=== PATIENT | male | born 1965 | race Caucasian/White ===

== ENCOUNTER → 2017-12-07 | Outpatient (CLI) | payer OTHER ==
--- NOTE | 2017-12-07 22:40 | MR ---
EXAMINATION TYPE: MR knee RT wo con DATE OF EXAM: 12/07/2017 COMPARISON: Outside right knee x-ray November 21, 2017 HISTORY: Rt knee pain x 2 weeks after exercising per patient. Pain per order. TECHNIQUE: Multiplanar, multisequence images of the knee is performed without IV contrast. FINDINGS: MEDIAL MENISCUS: Anterior and posterior horns are intact without tear. LATERAL MENISCUS: Anterior and posterior horns are intact without tear. CRUCIATE LIGAMENTS: The anterior and posterior cruciate ligaments are intact and unremarkable. COLLATERAL LIGAMENTS: The medial collateral ligament and lateral collateral ligament complex are inta ct. Some mild increased fluid signal surrounds lateral collateral ligament complex. EXTENSOR MECHANISM: Visualized quadriceps and patellar tendons are intact. EFFUSION: No significant suprapatellar joint effusion. POPLITEAL CYST: No popliteal/tavares cyst. TRICOMPARTMENT SPACES: There is mild to moderate tricompartment joint space loss with mild to minimal spurring. CARTILAGE: Some thinning of articular cartilage inferior posterior patellar pole is present. No full- thickness loss is seen. Articular cartilage is maintained lateral and medial tibiofemoral compartment s. BONE MARROW SIGNAL: No focal abnormal marrow signal is appreciated. OTHER: No additional significant abnormality is appreciated. IMPRESSION: 1. No meniscal or ligamentous tear is seen. 2. Mild to moderate lateral collateral ligament complex sprain injury. 3. Background mild tricompartment degenerative changes.
== END | disposition home or self-care (01) ==
LOC: RADMRIMAIN 17:45
PROVIDERS: ATTEND Orthopaedic Surgery
DX: S83.421A Sprain of lateral collateral ligament of right knee, initial encounter (principal)

== ENCOUNTER 2017-12-16 00:41 | Emergency (ER) | payer OTHER ==
[2017-12-16 00:50] VITALS: BP 147/79; PULSE 76; RESP 16; TEMP 98.5
[2017-12-16] MEDS ORDERED: HYDROcodone/APAP 5-325MG 1 EACH TAB PO STA (00:57)
--- NOTE | 2017-12-16 01:00 | ED ---
Upper Extremity HPI - General Chief Complaint: Extremity Injury, Upper Stated Complaint: L Wrist Injury Time Seen by Provider: 12/16/17 00:55 Source: patient Mode of arrival: ambulatory Limitations: no limitations - History of Present Illness Initial Comments: 52-year-old male patient presents to the emergency department today for complaints of left wrist pain. Patient states around 11 PM he was playing soccer, states that the ball struck him in the wrist. States he is having significant pain to the medial aspect of the wrist. States he is able to move it, but the pain increases significantly with any rotation. He denies any numbness or tingling to the hand. He denies any other injuries. Patient denies any headache, neck pain, back pain, chest pain, shortness of breath, dizziness, weakness, abdominal pain, nausea, vomiting, or difficulties with bowel movements or urination. - Related Data Allergies Allergy/AdvReac Type Severity Reaction Status Date / Time infliximab [From Remicade] Allergy Chest Pain Verified 12/16/17 00:50 Review of Systems ROS Statement: Those systems with pertinent positive or pertinent negative responses have been documented in the HPI. ROS Other: All systems not noted in ROS Statement are negative. Past Medical History Past Medical History: No Reported History Additional Past Medical History / Comment(s): crohns disease History of Any Multi-Drug Resistant Organisms: None Reported Past Surgical History: Appendectomy, Orthopedic Surgery Additional Past Surgical History / Comment(s): bowel resection, ACL repair. Past Psychological History: No Psychological Hx Reported Smoking Status: Never smoker Past Alcohol Use History: None Reported Past Drug Use History: None Reported General Exam Limitations: no limitations General appearance: alert, in no apparent distress, other (Physical well- developed, well-nourished adult male patient in no acute distress. Vital signs upon presentation are temperature 98.5F, pulse 76, respirations 16, blood pressure 147/79, pulse ox 98% on room air) Eye exam: Present: normal appearance, PERRL, EOMI. Absent: scleral icterus, conjunctival injection, periorbital swelling ENT exam: Present: normal exam, normal oropharynx, mucous membranes moist Respiratory exam: Present: normal lung sounds bilaterally. Absent: respiratory distress, wheezes, rales, rhonchi, stridor Cardiovascular Exam: Present: regular rate, normal rhythm, normal heart sounds. Absent: systolic murmur, diastolic murmur, rubs, gallop, clicks Extremities exam: Present: tenderness (Tenderness over the radial head on the left wrist.), normal capillary refill, other (There is swelling noted over the dorsal aspect of the left wrist. No anatomical snuffbox tenderness. Skin is otherwise pink, warm, and dry. Cap refills less than 3 seconds. Radial pulses 2+ and equal bilaterally.). Absent: full ROM (Decreased range of motion due to increased pain with movement), pedal edema, joint swelling, calf tenderness Neurological exam: Present: alert, oriented X3, CN II-XII intact Psychiatric exam: Present: normal affect, normal mood Skin exam: Present: warm, dry, intact, normal color. Absent: rash Course Vital Signs 12/16/17 00:44 Temperature 98.5 F Pulse Rate 76 Respiratory 16 Rate Blood Pressure 147/79 O2 Sat by Pulse 98 Oximetry Procedures - Orthopedic Splinting/Casting Injury #1 Side: left Upper Extremity Injury Location: short arm, wrist Upper Extremity Immobilizer: volar splint Additional Comments: Neurovascular status intact after splint application. Skin is pink, warm, and dry. Cap refills less than 3 seconds. Patient denies numbness or tingling. Medical Decision Making - Medical Decision Making 52-year-old male patient percents to the emergency department today for complaints of left wrist pain after an injury while playing soccer. Physical examination did reveal swelling surrounding the left wrist. Patient had radial head tenderness. He denied any anatomical snuffbox tenderness. Neurovascular status was intact. Distal pulses intact. X-ray was obtained and did show a fracture of the radial styloid process. Patient was placed in a short arm volar OCL splint. Neurovascular status intact after splint application. Discussed pain management, ice, and elevation with the patient. He is instructed to follow-up with orthopedics as soon as possible. He requests Dr. Franklin. He is instructed to return here immediately for any new, worsening, or concerning symptoms or to verbalizes understanding and agrees with this plan. - Radiology Data Radiology results: report reviewed, image reviewed 3 views of the left wrist show transverse fractures of the radial styloid process. There is no dislocation. There is no displacement. The fragment measures 2 x 1.5 cm. Carpal bones are intact. Metacarpals are intact. Impression by Dr. Ruiz shows acute nondisplaced fracture of the radial styloid process. Disposition Clinical Impression: Left radial fracture Disposition: HOME SELF-CARE Condition: Good Instructions: Arm Fracture in Adults (ED), Splint Care (ED) Additional Instructions: Rest, ice, elevate the left arm. Apply ice 20 minutes at a time at least 4 times daily. Leave splint in place until follow-up with orthopedics. Follow- up with orthopedics as soon as possible. Return here immediately for any new, worsening, or concerning symptoms. Referrals: Joy Magana MD [Primary Care Provider] - 1-2 days Blair Franklin MD [STAFF PHYSICIAN] - 1-2 days Time of Disposition: 01:30
--- NOTE | 2017-12-16 01:15 | XR ---
EXAMINATION TYPE: XR wrist complete LT DATE OF EXAM: 12/16/2017 COMPARISON: NONE HISTORY: Pain and injury TECHNIQUE: 3 views FINDINGS: There is a transverse fracture through the radial styloid process. There is no dislocation. There is no displacement. The fragment measures 2 x 1.5 cm. Carpal bones are intact. Metacarpals are intact. IMPRESSION: Acute nondisplaced large fracture of the radial styloid process.
== END 2017-12-16 01:33 | disposition home or self-care (01) ==
LOC: EC 00:41
DX: S52.512A Displaced fracture of left radial styloid process, initial encounter for closed fracture (principal); Z88.8 Allergy status to other drugs, medicaments and biological substances; W21.02XA Struck by soccer ball, initial encounter; Y93.66 Activity, soccer
CPT/HCPCS: 29125; 99283

== ENCOUNTER 2017-12-24 23:33 | Emergency (ER) | payer OTHER ==
[2017-12-24 23:39] VITALS: PULSE 79; RESP 18
[2017-12-24] MEDS ORDERED: HYDROcodone/APAP 5-325MG 1 EACH TAB PO STA (23:58)
[2017-12-24] MEDS ORDERED: KETOROLAC 60 MG/2 ML VIAL IM STA (23:58)
--- NOTE | 2017-12-25 00:32 | XR ---
EXAMINATION TYPE: XR chest 2V DATE OF EXAM: 12/25/2017 COMPARISON: NONE HISTORY: Difficulty breathing TECHNIQUE: Frontal and lateral views of the chest are obtained. FINDINGS: There is no heart failure nor confluent pneumonic infiltrate. Costophrenic angles are therese r. Bony thorax is intact. There is poor inspiration. IMPRESSION: No active cardiopulmonary disease.
--- NOTE | 2017-12-25 00:41 | ED ---
General Adult HPI - General Chief complaint: Abdominal Pain Stated complaint: LUQ Pain Time Seen by Provider: 12/24/17 23:35 Source: patient, RN notes reviewed Mode of arrival: ambulatory Limitations: no limitations - History of Present Illness Initial comments: This is a 52-year-old male who presents emergency department stating that he has had a cough over the last week which is improving. Patient states today however he coughed very hard and now he has pain in his lower right rib cage. Patient states hurts take a deep breath or moves. Patient states coughing also increases the pain. Patient denies being short of breath. Patient denies any other chest pain. Patient denies any fever chills. Patient denies any abdominal pain. - Related Data Previous Rx's Medication Instructions Recorded Hydrocodone/Acetaminophen [[place] 1 each PO Q6HR PRN #10 tab 12/25/17 5-325] Ibuprofen [Motrin] 600 mg PO Q6HR PRN #20 tab 12/25/17 Allergies Allergy/AdvReac Type Severity Reaction Status Date / Time infliximab [From Remicade] Allergy Chest Pain Verified 12/24/17 23:39 Review of Systems ROS Statement: Those systems with pertinent positive or pertinent negative responses have been documented in the HPI. ROS Other: All systems not noted in ROS Statement are negative. Past Medical History Past Medical History: No Reported History Additional Past Medical History / Comment(s): crohns disease History of Any Multi-Drug Resistant Organisms: None Reported Past Surgical History: Appendectomy, Orthopedic Surgery Additional Past Surgical History / Comment(s): bowel resection, ACL repair. Past Psychological History: No Psychological Hx Reported Smoking Status: Never smoker Past Alcohol Use History: None Reported Past Drug Use History: None Reported General Exam - General Exam Comments Initial Comments: GENERAL: Patient is well-developed and well-nourished. Patient is nontoxic and well- hydrated and is in mild distress. ENT: Neck is soft and supple. No significant lymphadenopathy is noted. Oropharynx is clear. Moist mucous membranes. Neck has full range of motion without eliciting any pain. EYES: The sclera were anicteric and conjunctiva were pink and moist. Extraocular movements were intact and pupils were equal round and reactive to light. Eyelids were unremarkable. PULMONARY: Unlabored respirations. Good breath sounds bilaterally. No audible rales rhonchi or wheezing was noted. CARDIOVASCULAR: There is a regular rate and rhythm without any murmurs gallops or rubs. Patient 's rib cage on the left lateral aspect is tender at about the 11th 12th rib. ABDOMEN: Soft and nontender SKIN: Skin is clear with no lesions or rashes and otherwise unremarkable. NEUROLOGIC: Patient is alert and oriented x3. Cranial nerves II through XII are grossly intact. Motor and sensory are also intact. Normal speech, volume and content. Symmetrical smile. MUSCULOSKELETAL: Normal extremities with adequate strength and full range of motion. LYMPHATICS: No significant lymphadenopathy is noted PSYCHIATRIC: Normal psychiatric evaluation. Limitations: no limitations Course Vital Signs 12/24/17 23:35 Temperature 97.7 F Pulse Rate 79 Respiratory 18 Rate Blood Pressure 131/85 O2 Sat by Pulse 96 Oximetry Disposition Clinical Impression: Chest wall muscle strain Disposition: HOME SELF-CARE Condition: Good Instructions: Chest Wall Pain (ED) Prescriptions: Hydrocodone/Acetaminophen [[place] 5-325] 1 each PO Q6HR PRN #10 tab PRN Reason: Pain Ibuprofen [Motrin] 600 mg PO Q6HR PRN #20 tab PRN Reason: For pain Referrals: Joy Magana MD [Primary Care Provider] - 1-2 days Time of Disposition: 00:40
[2017-12-25] MEDS ORDERED: HYDROcodone/APAP 5-325MG 1 EACH TAB PO STA (00:48)
[2017-12-25 00:50] VITALS: BP 127/59; TEMP 98.5
== END 2017-12-25 00:53 | disposition home or self-care (01) ==
LOC: EC 23:33
DX: S29.011A Strain of muscle and tendon of front wall of thorax, initial encounter (principal); R05 Cough; Z88.8 Allergy status to other drugs, medicaments and biological substances; X58.XXXA Exposure to other specified factors, initial encounter
CPT/HCPCS: 71046; 99284; 96372; J1885

== ENCOUNTER → 2018-10-06 | Outpatient (CLI) | payer OTHER ==
[2018-10-06 13:34] LABS: Basophils % (A) 1 %; Eosinophils # (A) 0.1 k/uL (0-0.7); Eosinophils % (A) 3 %; HCT 40.3 % (39.0-53.0); HGB 13.2 gm/dL (13.0-17.5); Lymphocytes # (A) 0.5 k/uL (1.0-4.8); Lymphocytes % (A) 14 %; MCH 31.7 pg (25.0-35.0); MCHC 32.7 g/dL (31.0-37.0); Mean Platelet Volume 7.1; Monocytes # (A) 0.4 k/uL (0-1.0); Monocytes % (A) 13 %; Neutrophils # (A) 2.2 k/uL (1.3-7.7); Neutrophils % (A) 66 %; Platelet Count 166 k/uL (150-450); RBC 4.15 m/uL (4.30-5.90); RDW 13.4 % (11.5-15.5); WBC 3.3 k/uL (3.8-10.6)
[2018-10-06 13:45] LABS: Potassium 4.8 mmol/L (3.5-5.1)
== END | disposition home or self-care (01) ==
LOC: LABPAT 13:01
PROVIDERS: ATTEND Orthopaedic Surgery
DX: Z01.818 Encounter for other preprocedural examination (principal); M23.92 Unspecified internal derangement of left knee
CPT/HCPCS: 36415; 80051; 85025; 93005

== ENCOUNTER → 2018-10-18 | Day surgery (SDC) | payer OTHER ==
[2018-10-11 14:28] VITALS: BMI 35.7
--- NOTE | 2018-10-17 14:21 | HP ---
HISTORY AND PHYSICAL Surgery is scheduled for 10/18/2018. Greg Quintana is a 52-year-old patient seen with progressive left knee pain. We discussed treatment options. He elected to proceed with arthroscopy. Consent was obtained his. PAST MEDICAL HISTORY: Noncontributory. PAST SURGICAL HISTORY: Left knee arthroscopy. MEDICATIONS: Lomotil, vitamins. ALLERGIES: None reported. SOCIAL HISTORY: He denies tobacco use. PHYSICAL EXAMINATION: Evaluation of the left knee his range of motion is 0 to 120 degrees. There is tenderness along the medial and lateral joint lines. Positive medial Fernando's. Positive lateral Fernando's. +2 Kacie. Collateral ligaments are stable. Hip rotation without pain. Distal neurovascular exam intact. RADIOGRAPHS: Radiographs of the left knee revealed moderate to severe medial compartment osteoarthritis, a bipartite patella, evidence for previous ACL reconstruction. IMPRESSION: Internal derangement of left knee with medial meniscal tear. PLAN: Left knee arthroscopy with partial meniscectomy and debridement. MMODL / IJN: [id number] /
[~2018-10-18] MED LIST: BUPIVACAIN-EPI 0.25%-1:200,000 30 ML VIAL SQ ONE; DEXAMETHASONE SOD PHOSPHATE 10 MG/ML 1 ML VIAL IV ONE; HYDROmorphone (PF) 1 MG/ML ONE; LACTATED RINGERS 1,000 ML IV SCH; LIDOCAINE 1% 20 ML VIAL (10MG/ML) FOR IV START INTRADERMA ONE; LIDOCAINE 1% INJ 10MG/ML (20 ML MDV) ONE; MIDAZOLAM 2 MG/2 ML VIAL IV PRN; MIDAZOLAM 2 MG/2 ML VIAL ONE; ONDANSETRON 4 MG/2 ML VIAL IVP ONE; PROPOFOL 10 MG/ML 20 ML VIAL IV ONE; SCOPOLAMINE 1.5MG/72HR PATCH TRANSDERM ONE; ceFAZolin IN SWFI 2 GM/20 ML SYRINGE IVP ONE; fentaNYL (PF) 50 MCG/ML 2 ML AMP IV PRN; fentaNYL (PF) 50 MCG/ML 2 ML AMP ONE
--- NOTE | 2018-10-18 11:30 | P.OP ---
Date of Procedure: 10/18/18 Preoperative Diagnosis: Internal derangement left knee Postoperative Diagnosis: 1. Tear medial meniscus left knee 2. Grade 4 chondromalacia femoral sulcus left knee 3. Reactive synovitis medial and suprapatellar compartments left knee Procedure(s) Performed: 1. Arthroscopic partial medial meniscectomy left knee 2. Arthroscopic chondroplasty femoral sulcus left knee 3. Arthroscopic microfracture femoral sulcus left knee 4. Arthroscopic partial synovectomy medial and suprapatellar compartments left knee Anesthesia: GETA, local Surgeon: Jerry Yap Estimated Blood Loss (ml): 5 Pathology: none sent Condition: stable Disposition: PACU Indications for Procedure: 52-year-old patient seen with progressive left knee pain. After having treatment options discussed, he elected to proceed with arthroscopy. Operative Findings: see description of procedure Description of Procedure: Patient was taken to the operative suite. Patient underwent a general anesthetic by the department of anesthesia. Patient was given preoperative antibiotics. The left lower extremity was placed in a well-padded arthroscopic leg che. The left leg was prepped and draped in the normal sterile orthopedic fashion. A lateral parapatellar and suprapatellar incision was made. Trochars were inserted. Arthroscopy was initiated. Suprapatellar pouch revealed diffuse thick reactive synovitis. The patellofemoral joint appeared to articulate congruently. There was an area of grade 4 chondromalacia of the femoral sulcus. There was grade 2 chondromalacia of the patella but no osteochondral tears were present.. The scope was guided into the medial gutter. No loose bodies or plica were identified. The scope was then guided into the medial compartment. A medial parapatellar incision was made. Trocar inserted followed by probe. There was a radial tear involving the posterior horn medial meniscus. There were grade 4 chondromalacia changes of both the femoral condyle and tibial plateau and areas of exposed bone were present. There was thick reactive synovitis anteriorly. I performed a partial medial meniscectomy down to stable tissue. I performed a partial synovectomy decompressing the thick reactive synovitis. The residual meniscus was stable. There was good decompression of the synovitis. Scope and probe were then guided into the intercondylar notch. Cruciates were identified, probed and found to be stable. The scope and probe were then guided into lateral compartment. The lateral meniscus was probed and found to be intact and stable. There was no synovitis. There were mild grade 1 chondromalacia changes with no osteochondral tears present. The scope was in guided back into the suprapatellar compartment. I introduced a motorized shaver into the super patellar compartment. I performed a chondroplasty of the femoral sulcus getting down to stable peripheral osteochondral tissue. There was an area of exposed bone centrally. I performed a microfracture to that area penetrating the bone with resultant bleeding at the microfracture site. I now probed the area and the residual osteochondral surface was stable. I introduced a motorized shaver and performed a partial synovectomy decompressing the thick reactive synovitis. I took one more look on the entire knee, no residual debris. Instruments were now removed from the joint. The joint was infiltrated with .25% Marcaine. Steri-Strips were applied to the portal sites. Sterile dressings were applied. The patient was placed into a JENNIFER hose. No tourniquet was utilized. The patient was awakened, transferred to a bed and taken to recovery stable satisfactory condition.
[2018-10-18 11:33] VITALS: TEMP 97.1
[2018-10-18 12:35] VITALS: BP 124/78; PULSE 65; RESP 18
== END | disposition home or self-care (01) ==
LOC: OR 08:49
PROVIDERS: ATTEND Orthopaedic Surgery
DX: S83.242A Other tear of medial meniscus, current injury, left knee, initial encounter (principal); X58.XXXA Exposure to other specified factors, initial encounter; M94.262 Chondromalacia, left knee; M22.42 Chondromalacia patellae, left knee; M65.862 Other synovitis and tenosynovitis, left lower leg; M17.12 Unilateral primary osteoarthritis, left knee; K21.9 Gastro-esophageal reflux disease without esophagitis; K50.90 Crohn's disease, unspecified, without complications; Z90.49 Acquired absence of other specified parts of digestive tract; Z79.899 Other long term (current) drug therapy; Z79.82 Long term (current) use of aspirin
CPT/HCPCS: 29881; 29879; J2250; J1100; J2405; J2001; J3010; J1170; J2704